=== PATIENT | male | born 1950 | race Asian ===

== ENCOUNTER 2024-03-18 14:08 | Emergency (ER) | payer OTHER ==
[2024-03-18 15:49] LABS: Absolute Basophils 0.2 K/uL (0-0.5); Absolute Eosinophils 0.5 K/uL (0-0.5); Absolute Lymphocytes (CBC) 1.3 K/uL (0.7-4.9); Absolute Monocytes 1.8 K/uL (0.1-1.3); Absolute Neutrophil 8.9 K/uL (1.8-8.0); Basophils % 1.4 % (0-1.3); Eosinophils % 4.3 % (0-4.4); Hematocrit 35.7 % (39.6-49.0); Hemoglobin 11.9 g/dL (13.6-17.9); Lymphocytes % 10.3 % (15.3-44.8); MCH 29.1 pg (27.0-35.0); MCHC 33.2 g/dL (32.0-36.0); MCV 87.5 fL (80-100); MPV 7.4 fL (7.6-11.3); Monocytes % 13.9 % (3.3-12.3); Neutrophils % 70.1 % (41.7-73.7); Platelets 401 thou/uL (152-406); RBC Red Blood Cell Count 4.08 M/uL (4.33-5.43); Red Cell Distribution Width 13.6 % (12.1-15.2)
[2024-03-18 16:13] LABS: Anion Gap 8.7 mEq/L (5.0-15.0)
[2024-03-18 16:18] LABS: Potassium 4.7 mEq/L (3.5-5.1)
[2024-03-18] MEDS ORDERED: HYDROCODONE/APAP 5/325 MG TAB ONE (16:23)
[2024-03-18] MEDS ORDERED: NA CHLORIDE 0.9% 500 ML ONE (16:24)
--- NOTE | 2024-03-18 17:21 | ER ---
Nurse's Notes [facility] Name: Sanna Aldana Age: 74 yrs Sex: Male : 1950 Arrival Date: 03/18/2024 Time: 14:08 Bed 14 Private MD: Diagnosis: Pain in arm, unspecified-bilateral;Pain in unspecified lower leg-bilateral Presentation: 03/18 14:15 Chief complaint: Patient states: Weakness for 2 weeks with extremity pain. Coronavirus ll1 screen: Client denies travel out of the [place] in the last 14 days. At this time, the client does not indicate any symptoms associated with coronavirus-19. Ebola Screen: Patient denies travel to an Ebola-affected area in the 21 days before illness onset. Initial Sepsis Screen: Does the patient meet any 2 criteria? No. Patient's initial sepsis screen is negative. Does the patient have a suspected source of infection? No. Patient's initial sepsis screen is negative. Risk Assessment: Do you want to hurt yourself or someone else? Patient reports no desire to harm self or others. Onset of symptoms was March 06, 2024. 14:15 Method Of Arrival: EMS ll1 14:15 Acuity: BRIDGET 3 ll1 Historical: - Allergies: 14:17 No Known Allergies; ll1 - PMHx: 14:17 Gout; Hypertension; ll1 - Immunization history:: Adult Immunizations up to date. - Infectious Disease History:: Denies. - Social history:: Smoking status: Patient denies any tobacco usage or history of. Screenin:15 [facility] ED Fall Risk Assessment (Adult) History of falling in the last 3 months, rs5 including since admission No falls in past 3 months (0 pts) Confusion or Disorientation No (0 pts) Intoxicated or Sedated No (0 pts) Impaired Gait Yes (1 pt) Mobility Assist Device Used Yes (1 pt) Altered Elimination No (0 pt) Score/Fall Risk Level 0 - 2 = Low Risk Oriented to surroundings, Maintained a safe environment. Abuse screen: Denies threats or abuse. Nutritional screening: No deficits noted. Tuberculosis screening: No symptoms or risk factors identified. Assessment: 14:15 General: Appears uncomfortable, Behavior is calm, cooperative, appropriate for age, rs5 Reports fatigue for. Pain: Complains of pain in right arm, left arm, right leg and left leg Pain currently is 3 out of 10 on a pain scale. Quality of pain is described as aching. Neuro: No deficits noted. Neuro: Reports weakness. Musculoskeletal: Reports pain in right arm, left arm, right leg and left leg. 14:15 Cardiovascular: Patient's skin is warm and dry. Respiratory: Airway is patent rs5 Respiratory effort is even, unlabored, Respiratory pattern is regular, symmetrical. GI: Abdomen is round non-distended, Abd is soft and non tender X 4 quads. : No signs and/or symptoms were reported regarding the genitourinary system. EENT: No signs and/or symptoms were reported regarding the EENT system. Derm: Skin is intact, Skin is pink, warm \T\ dry. 14:30 Reassessment: Provider notified pt is experiencing pain . rs5 15:33 Reassessment: Patient and/or family updated on plan of care and expected duration. Pain rs5 level reassessed. Patient is alert, oriented x 3, equal unlabored respirations, skin warm/dry/pink. Patient denies pain at this time. Patient states feeling better. Patient states symptoms have improved. 16:37 Reassessment: No changes from previously documented assessment. rs5 17:41 Reassessment: Patient and/or family updated on plan of care and expected duration. Pain rs5 level reassessed. Patient is alert, oriented x 3, equal unlabored respirations, skin warm/dry/pink. Vital Signs: 14:15 BP 152 / 69; Pulse 79; Resp 17; Temp 98.1; Pulse Ox 98% ; Weight 85.73 kg; Height 5 ft. ll1 6 in. ; Pain 6/10; 16:52 BP 162 / 80; Pulse 77; Resp 17; Pulse Ox 99% on R/A; rs5 17:50 BP 155 / 83; Pulse 71; Resp 17; Pulse Ox 99% on R/A; rs5 14:15 Body Mass Index 30.51 (85.73 kg, 167.64 cm) ll1 14:15 Pain Scale: Adult ll1 ED Course: 14:14 Patient arrived in ED. cm10 14:15 Patient has correct armband on for positive identification. Placed in gown. Bed in low rs5 position. Call light in reach. Side rails up X2. 14:15 No provider procedures requiring assistance completed. rs5 14:17 Triage completed. ll1 14:31 Janine Brooks FNP-C is [facility]. kb 14:31 Gareth Yao MD is Attending Physician. kb 15:26 Warm blanket given. Pillow given. rs5 15:32 Michael Flanagan, RN is Primary Nurse. rs5 15:41 Initial lab(s) drawn, by me, sent to lab. Missed attempt(s): 22 gauge in right ph antecubital area. Bleeding controlled, band aid applied, catheter tip intact. 17:50 IV discontinued, intact, bleeding controlled, No redness/swelling at site. Pressure rs5 dressing applied. Administered Medications: 16:30 Drug: NS 0.9% IV 500 ml IV at bolus once Route: IV; Rate: bolus; Site: left antecubital;rs5 16:53 Follow up: Response: No adverse reaction rs5 16:30 Drug: HYDROcodone-acetaminophen PO 5 mg-325 mg 1 tabs PO once Route: PO; rs5 16:53 Follow up: Response: No adverse reaction; Pain is decreased rs5 17:20 Drug: Decadron - Dexamethasone IVP 10 mg IVP once Route: IVP; Site: left antecubital; rs5 17:50 Follow up: Response: No adverse reaction rs5 Medication: 16:52 VIS not applicable for this client. rs5 Outcome: 17:20 Discharge ordered by MD. kb 17:50 Discharged to home ambulatory, rs5 17:50 Condition: stable 17:50 Discharge instructions given to patient, family, Instructed on discharge instructions, follow up and referral plans. Demonstrated understanding of instructions, follow-up care, 17:55 Patient left the ED. tl4 Signatures: Janine Brooks FNP-C REGISTERED NURSE OBSTETRICS-Florinda Salas RN RN ph Donna Calderón RN RN ll1 Michael Flanagan, RN RN rs5 Mariel Real RN RN cm10 Andrews Blanco RN RN tl4 Corrections: (The following items were deleted from the chart) 15:42 15:42 General: Appears uncomfortable, Behavior is calm, cooperative, appropriate for ph age, ph 16:55 15:42 Pain: Complains of pain in right arm, left arm, right leg and left leg Quality of rs5 pain is described as aching, ph 16:55 15:42 Musculoskeletal: Reports pain in right arm, left arm, right leg and left leg ph rs5 16:55 15:42 Neuro: No deficits noted. ph rs5 16:55 15:42 General: Appears uncomfortable, Behavior is calm, cooperative, appropriate for rs5 age, Reports fatigue for ph 16:55 15:42 Neuro: Reports weakness ph rs5 16:55 16:51 Reassessment: Patient and/or family updated on plan of care and expected rs5 duration. Pain level reassessed. Patient is alert, oriented x 3, equal unlabored respirations, skin warm/dry/pink. Patient states feeling better. rs5 16:55 14:15 Pain: Complains of pain in right arm, left arm, right leg and left leg Quality of rs5 pain is described as aching, rs5 18:16 18:03 Reassessment: Patient and/or family updated on plan of care and expected rs5 duration. Pain level reassessed. Patient is alert, oriented x 3, equal unlabored respirations, skin warm/dry/pink. rs5
--- NOTE | 2024-03-18 17:21 | EDPHYS ---
Physician Documentation [facility] Name: Sanna Aldana Age: 74 yrs Sex: Male : 1950 Arrival Date: 03/18/2024 Time: 14:08 Bed 14 Private MD: ED Physician Gareth Yao HPI: 03/18 17:25 This 74 yrs old Male presents to ER via EMS with complaints of General Weakness. kb 17:25 Pt is a 74 year old male who presents for pain to bilateral arms and legs that started kb 5 weeks ago. states the pain moves into different areas of extremities at different times. Has been seen multiples times by PCP and diagnosed with arthritis. States he was given one medication that didn't work, then prescribed gabapentin 300mg that made him really weak and tired. Historical: - Allergies: 14:17 No Known Allergies; ll1 - PMHx: 14:17 Gout; Hypertension; ll1 - Immunization history:: Adult Immunizations up to date. - Infectious Disease History:: Denies. - Social history:: Smoking status: Patient denies any tobacco usage or history of. ROS: 17:24 Constitutional: As per HPI kb Exam: 17:24 Constitutional: This is a well developed, well nourished patient who is awake, alert, kb and in no acute distress. Head/Face: Normocephalic, atraumatic. ENT: Moist Mucous membranes Cardiovascular: Regular rate Respiratory: Respirations even and unlabored. No increased work of breathing. Talking in full sentences Abdomen/GI: Soft, non-tender. No distention Skin: Warm, dry with normal turgor. Normal color. MS/ Extremity: Pulses equal, no cyanosis. Neurovascular intact. Full, normal range of motion. Neuro: Awake and alert, GCS 15, oriented to person, place, time, and situation. Moves all extremities. Normal gait. Vital Signs: 14:15 BP 152 / 69; Pulse 79; Resp 17; Temp 98.1; Pulse Ox 98% ; Weight 85.73 kg; Height 5 ft. ll1 6 in. ; Pain 6/10; 16:52 BP 162 / 80; Pulse 77; Resp 17; Pulse Ox 99% on R/A; rs5 17:50 BP 155 / 83; Pulse 71; Resp 17; Pulse Ox 99% on R/A; rs5 14:15 Body Mass Index 30.51 (85.73 kg, 167.64 cm) ll1 14:15 Pain Scale: Adult ll1 MDM: 14:31 Patient medically screened. kb 17:24 Differential diagnosis: arthritis, abnormal electrolytes. Data reviewed: vital signs, kb nurses notes. Counseling: I had a detailed discussion with the patient and/or guardian regarding the historical points, exam findings, and any diagnostic results supporting the discharge/admit diagnosis, lab results, the need for outpatient follow up, a family practitioner, to return to the emergency department if symptoms worsen or persist or if there are any questions or concerns that arise at home. 03/18 14:41 Order name: CBC with Diff; Complete Time: 15:55 kb 03/18 14:41 Order name: Basic Metabolic Panel; Complete Time: 16:21 kb Administered Medications: 16:30 Drug: NS 0.9% IV 500 ml IV at bolus once Route: IV; Rate: bolus; Site: left antecubital;rs5 16:53 Follow up: Response: No adverse reaction rs5 16:30 Drug: HYDROcodone-acetaminophen PO 5 mg-325 mg 1 tabs PO once Route: PO; rs5 16:53 Follow up: Response: No adverse reaction; Pain is decreased rs5 17:20 Drug: Decadron - Dexamethasone IVP 10 mg IVP once Route: IVP; Site: left antecubital; rs5 17:50 Follow up: Response: No adverse reaction rs5 Disposition Summary: 03/18/24 17:20 Discharge Ordered Notes: Location: Home kb Condition: Stable kb Diagnosis - Pain in arm, unspecified - bilateral kb - Pain in unspecified lower leg - bilateral kb Followup: kb - With: Emergency Department - When: As needed - Reason: Worsening of condition Followup: kb - With: Private Physician - When: 2 - 3 days - Reason: Recheck today's complaints, Continuance of care, Re-evaluation by your physician Discharge Instructions: - Discharge Summary Sheet kb - Musculoskeletal Pain kb Forms: - Medication Reconciliation Form kb - Antibiotic Education kb - Prescription Opioid Use kb - Patient Portal Instructions kb - Leadership Thank You Letter kb Signatures: Dispatcher [employer] Janine Holland FNP-C FNP-Donna Reagan RN RN ll1 Michael Flanagan RN RN rs5 Corrections: (The following items were deleted from the chart) 17:27 17:25 Pt is a 74 year old male who presents for pain to bilateral arms and legs that kb started 5 weeks ago. states the pain moves into different areas of extremities at different times. Has been seen multiples times by PCP and diagnosed with arthritis. States he was given one medication that didn't work, then prescribed gabapentin 300mg that made him really sick. . kb
[2024-03-18] MEDS ORDERED: dexAMETHasone 10 MG/ML VIAL ONE (17:45)
[2024-03-18 18:22] VITALS: BP 162/80; TEMP 98.1; O2SAT 99
== END 2024-03-18 17:55 | disposition home or self-care (01) ==
LOC: ER 14:08
DX: M79.602 Pain in left arm (principal); M79.601 Pain in right arm; M79.662 Pain in left lower leg; M79.661 Pain in right lower leg; M10.9 Gout, unspecified; I10 Essential (primary) hypertension
CPT/HCPCS: 85025; 80048; 36415; 96374; 99284; J1100; J7040